=== PATIENT | male | born 1975 | race Hispanic/Latino ===

== ENCOUNTER 2024-08-22 12:46 | Emergency (ER) | payer OTHER ==
--- OUTSIDE RECORDS SUMMARY | 2024-08-22 12:49 | XMS REPORT | Continuity of Care Document ---
Author Name Unknown Address [address] [facility] [address]. [address] [id number] [facility] thconnect Address [address] [facility] 1 [address] [place] [address] Care Team Providers Care Entry Level Sales Associate Name Role Phone Zhang Attending Clinician Lois Huerta Attending Clinician Zhang Admitting Clinician Rahat zelaya Payers Payer Name Policy Type Policy Number Effective Date Expirati on Date Source RingTu [id number] 2018 00:00:00 COMMERCIAL NON-CONTRACT GENERIC [id number] 2018 00:00:00 Problems Condition Name Condition Details Condition Category Status Onset Date Resolution Date Last Treatment Date Treating Clinician Comments Source Primary gonarthros is, bilateral Primary Gonarthros is, Bilateral Problem Active 2022-07 00:00: 00 [facility] Pain of bilateral knee regions Pain of Bilateral Knee Regions Problem Active 2022-07 00:00: 00 [facility] Primary osteoarthr itis of right knee Primary osteoarthr itis of right knee Problem Active [facility] Primary osteoarthr itis of left knee Primary osteoarthr itis of left knee Diagnosis Active [facility] Tear of medial meniscus of left knee, current, unspecifie d tear type, initial encounter Tear of medial meniscus of left knee, current, unspecifie d tear type, initial encounter Diagnosis Active [facility] No known active problems No known active problems Disease [facility] Allergies, Adverse Reactions, Alerts Allergy Name Allergy Type Status Severity Reaction(s) Onset Date Inactive Date Treating Clinician Comments Source NO KNOWN ALLERGIE S Drug Class Active [facility] Social History Social Habit Start Date Stop Date Quantity Comments Source Sex Assigned At [facility] Exposure to SARS-CoV-2 (event) Not sure [facility] Smoking Status Start Date Stop Date Source Unknown if ever smoked [facility] Medications Ordered Medication Name Filled Medication Name Start Date Stop Date Current Medication? Ordering Clinician Indication Dosage Frequency Signature (SIG) Comments Components Source NaCl 0.9% (NS) bolus infusion 1,000 mL 08-10 16:45: 00 08-10 18:20 :00 No 1000mL at 999 mL/hr, 1,000 mL, IV Infusion, ONCE, 1 dose, Sat08/10/20 at 1045, EDWINA [facility] tylenol tylenol Yes Anant Navarro not defined [facility] Mobic 15 mg tablet Take 1 tablet every day by oral route with meals for 30 days. Mobic 15 mg tablet Take 1 tablet every day by oral route with meals for 30 days. No 1 Q1D Mobic 15 mg tablet Take 1 tablet every day by oral route with meals for 30 days. [facility] Mobic 15 mg tablet Take 1 tablet every day by oral route with meals for 42 days. Take 2 tab on first day, then 1 tab daily Mobic 15 mg tablet Take 1 tablet every day by oral route with meals for 42 days. Take 2 tab on first day, then 1 tab daily No 1 Q1D Mobic 15 mg tablet Take 1 tablet every day by oral route with meals for 42 days. Take 2 tab on first day, then 1 tab daily [facility] No known medications No [facility] Vital Signs Vital Name Observation Time Observation Value Comments S ource Height 2023-09-05 00:00:00 73 [in_i] [facility] Body Weight 2023-09-05 00:00:00 300 [lb_av] [facility] BMI (Body Mass Index) 2023-09-05 00:00:00 39.6 kg/m2 [facility] Height 2023-05-30 00:00:00 73 [in_i] [facility] Body Weight 2023-05-30 00:00:00 300 [lb_av] [facility] BMI (Body Mass Index) 2023-05-30 00:00:00 39.6 kg/m2 [facility] Systolic blood pressure 2020-08-10 18:17:00 142 mm[Hg] [facility] acute hospital Diastolic blood pressure 2020-08-10 18:17:00 102 mm[Hg] [facility] acute hospital Heart rate 2020-08-10 18:17:00 71 /min [facility] Respiratory rate 2020-08-10 18:17:00 18 /min [facility] Oxygen saturation in Arterial blood by Pulse oximetry 2020-08-10 18:17:00 97 /min [facility] acute hospital Body temperature 2020-08-10 15:42:00 36.44 Nancy [facility] Body weight 2020-08-10 15:42:00 158.759 kg [facility] Procedures Procedure Date / Time Performed Performing Clinicia n Source XR, knee, 1 or 2 view 2023-05-30 00:00:00 [facility] CREATINE KINASE 2020-08-10 16:48:00 Lois Holm [facility] MAGNESIUM 2020-08-10 16:48:00 [facility] COMP. METABOLIC PANEL ([id number]) 2020-08-10 16:48:00 Lois Holm [facility] CBC WITH DIFF 2020-08-10 16:48:00 Lois Holm [facility] NOTICE OF PRIVACY PRACTICES 2020-08-10 15:36:43 Doctor Unassigned, [place] [facility] CONSENT/REFUSAL FOR DIAGNOSIS AND TREATMENT 2020-08-10 15:36:20 Doctor Unassigned, [place] [facility] Other [facility] Encounters Start Date/Time End Date/Time Encounter Type Admission Type Attending Clinicians Care Facility Care Department Encounter ID Source 2021-07-26 11:32:06 Outpatient [facility] [id number] [facility] 2021-07-26 11:02:58 Outpatient [facility] [id number] [facility] 2021-07-26 10:58:39 Outpatient [facility] [id number] [facility] 2023-09-05 00:00:00 2023-09-05 00:00:00 Outpatient FOG_Armen Rasheed [facility] AO [id number] [facility] 2023-09-05 00:00:00 2023-09-05 00:00:00 Chaim Alaniz MD: [address] [place], [place] [id number] , Ph. [phone] [facility] [place] [facility] [place] [id number] [facility] 2023-07-14 00:00:00 2023-07-14 00:00:00 Outpatient FOG_Armen Rasheed AOSM AO [id number] [facility] 2023-05-30 00:00:00 2023-05-30 00:00:00 Outpatient FOG_Armen Rasheed AOSM AO [id number] [facility] 2023-05-30 00:00:00 2023-05-30 00:00:00 Chaim Alaniz MD: [address] [place] [id number] , Ph. [phone] [facility] [place] [facility] [place] [id number] [facility] 2023-05-29 00:00:00 2023-05-29 00:00:00 Outpatient FOG_Armen Rasheed AOSM AOSM [id number] [facility] 2023-05-15 00:00:00 2023-05-15 00:00:00 Outpatient FOG_Armen Rasheed AOSM AOSM [id number] [facility] 2023-05-15 00:00:00 2023-05-15 00:00:00 Outpatient FRANCESCO_Corbin[facility]Nya amos[facility] [id number] [facility] 2020-08-10 09:52:00 2020-08-10 12:23:00 Emergency Lois Holm [facility] [id number] [facility] 2020-08-10 09:52:00 2020-08-10 09:52:[address] [facility] ERT [id number] [facility] 2019-02-13 07:55:00 2019-02-13 07:55:00 Outpatient [facility] [id number] [facility] 2019-01-27 08:30:00 2019-01-27 08:30:00 [facility] [id number] [facility] 2019-01-19 14:30:00 2019-01-19 14:30:00 [facility]patient [facility] [id number] [facility] 2019-01-07 13:41:00 2019-01-07 13:41:00 Outpatient [facility] [id number] [facility] 2018-12-24 17:12:00 2018-12-24 17:12:00 Outpatient [facility] [id number] [facility] 2018-09-30 12:47:00 2018-09-30 12:47:00 Outpatient [facility] [id number] [facility] 2018-09-23 10:00:00 2018-09-23 10:00:00 Outpatient [facility] [id number] [facility] Results Test Description Test Time Test Comments Results Result Co mments Source [facility] 17:19:00* Test Item Value Reference Range Interpretation Comme nts MAGNESIUM (test code = 2625932365) 2.1 mg/dL 1.7-2.4 Lab Interpretation (test cod e = 68566-0) Normal [facility] [id number] 17:18:00* Test Item Value Reference Range Interpretation Comme nts CK (test code = 7877227167) 804 U/L 33-194 H Lab Interpretation (test cod e = 69885-2) Abnormal [facility] WITH [id number] 17:06:00* Test Item Value Reference Range Interpretation Comme nts WBC (test code = 6690-2) See_Comment [Automated Kadenzea ge] The system which generated this result transmitted reference range: 4.20 - 10.70 10*3/?L. The reference range was not used to interpret this result as normal/abnormal. RBC (test code = 789-8) See_Comment [Automated Kadenzea ge] The system which generated this result transmitted reference range: 4.26 - 5.52 10*6/?L. The reference range was not used to interpret this result as normal/abnormal. HGB (test code = 718-7) 15.4 g/dL 12.2-16.4 HCT (test code = 4544-3) 44.8 % 38.4-49.3 MCV (test code = 787-2) 87.2 fL 81.7-95.6 MCH (test code = 785-6) 30.0 pg 26.1-32.7 MCHC (test code = 786-4) 34.4 g/dL 31.2-35 RDW-SD (test code = 79639-7) 38.9 fL 38.5-51.6 RDW-CV (test code = 788-0) 12.1 % 12.1-15.4 PLT (test code = 777-3) See_Comment H [Automated messa ge] The system which generated this result transmitted reference range: 150 - 328 10*3/?L. The reference range was not used to interpret this result as normal/abnormal. MPV (test code = 97589-9) 9.8 fL 9.8-13 NRBC/100 WBC (test code = 7602851743) See_Comment [Automated Astaro ssage] The system which generated this result transmitted reference range: 0.0 - 10.0 /100 WBCs. The reference range was not used to interpret this result as normal/abnormal. NRBC x10^3 (test code = 5772973650) <0.01 See_Comment [Automated messa ge] The system which generated this result transmitted reference range: 10*3/?L. The reference range was not used to interpret this result as normal/abnormal. GRAN MAT (NEUT) % (test code = 770-8) 65.3 % IMM GRAN % (test code = 5624191382) 0.70 % LYMPH % (test code = 736-9) 24.8 % MONO % (test code = 5905-5) 7.7 % EOS % (test code = 713-8) 1.1 % BASO % (test code = 706-2) 0.4 % GRAN MAT x10^3(ANC) (test code = 5100596799) 6.43 10*3/uL 1.99-6.95 IMM GRAN x10^3 (test code = 1036696380) 0.07 10*3/uL 0-0.06 H LYMPH x10^3 (test code = 731-0) 2.44 10*3/uL 1.09-3.23 MONO x10^3 (test code = 742-7) 0.76 10*3/uL 0.36-1.02 EOS x10^3 (test code = 711-2) 0.11 10*3/uL 0.06-0.53 BASO x10^3 (test code = 704-7) 0.04 10*3/uL 0.01-0.09 Lab Interpretation (test code = 88454-9) Abnormal [facility]
[2024-08-22] MEDS ORDERED: FAMOTIDINE 20 MG/2 ML VIAL IV ONE (13:30)
[2024-08-22] MEDS ORDERED: KETOROLAC 30 MG/ML INJ ONE (13:30)
[2024-08-22] MEDS ORDERED: ONDANSETRON 4 MG/2 ML VIAL ONE (13:30)
[2024-08-22] MEDS ORDERED: NA CHLORIDE 0.9% 1,000 ML ONE ×2 (13:31→15:40)
[2024-08-22 13:34] LABS: Absolute Basophils 0.1 K/uL (0-0.5); Absolute Eosinophils 0.3 K/uL (0-0.5); Absolute Lymphocytes (CBC) 2.9 K/uL (0.7-4.9); Absolute Monocytes 0.8 K/uL (0.1-1.3); Absolute Neutrophil 6.2 K/uL (1.8-8.0); Basophils % 0.6 % (0-1.3); Eosinophils % 2.5 % (0-4.4); Hematocrit 43.7 % (39.6-49.0); Hemoglobin 14.7 g/dL (13.6-17.9); Lymphocytes % 28.6 % (15.3-44.8); MCHC 33.6 g/dL (32.0-36.0); MCV 89.1 fL (80-100); MPV 7.9 fL (7.6-11.3); Monocytes % 7.6 % (3.3-12.3); Neutrophils % 60.7 % (41.7-73.7); Platelets 353 thou/uL (152-406); RBC Red Blood Cell Count 4.91 M/uL (4.33-5.43); Red Cell Distribution Width 13.8 % (12.1-15.2)
[2024-08-22 13:57] LABS: Albumin 3.6 g/dL (3.4-5.0); Albumin/Globulin Ratio 0.8 (1.1-1.8); Anion Gap 10.9 mEq/L (5.0-15.0); Bilirubin Total 0.5 mg/dL (0.2-1.0); Globulin 4.4 g/dL (2.3-3.5); Potassium 3.9 mEq/L (3.5-5.1)
--- NOTE | 2024-08-22 14:22 | RAD REPORT ---
EXAMINATION: US Abdomen Exam Limited CLINICAL HISTORY: [facility] MAIN Y ABD PAIN Bed: COMPARISON: None. TECHNIQUE: Limited upper abdominal grayscale and color flow sonographic images. FINDINGS: Gallbladder: Normal. Reportedly negative sonographic Hsieh sign Bile ducts: No intrahepatic or extrahepatic biliary dilatation. Common bile duct measures 2 mm. Liver: Visualized portions of the liver demonstrate diffuse parenchymal echogenicity suggesting steat osis. Small regions of sparing adjacent to the gallbladder bed. Fluid: No ascites. IMPRESSION: No suspicious sonographic abnormalities of the gallbladder. Diffuse hepatic steatosis.
[2024-08-22] MEDS ORDERED: MORPHINE 4 MG/ML SYR ONE (14:28)
--- NOTE | 2024-08-22 15:18 | RAD REPORT ---
EXAMINATION: CT Abdomen Pelvis W Contrast CLINICAL INDICATION: Male, 48 years old. ABD PAIN TECHNIQUE: CT abdomen and pelvis was performed, after the administration of IV contrast, as per [facility]. Axial, sagittal and coronal reconstructions were obtained. One or more of the following dose reduction techniques were used: Automated exposure control, adjustment of the mA and k V according to patient size, and iterative reconstruction. Unless otherwise specified, incidental findings do not require dedicated imaging follow-up. COMPARISON: No prior exam. FINDINGS: LOWER CHEST: The visualized lung bases are clear. LIVER: Mild fatty liver is present. No focal lesion or biliary dilataion is seen. BILIARY SYSTEM: No suspicious abnormalities. SPLEEN: Normal size. No focal lesion. PANCREAS: No mass, ductal dilation, or ekta-pancreatic fluid. ADRENALS: Normal; no mass. KIDNEYS: Normal size and contour. No hydronephrosis. URINARY BLADDER: Compressed limiting evaluation. GASTROINTESTINAL TRACT: Focus of mucosal irregularity with tiny locules of gas probably along the pos terior wall of the duodenal bulb, with adjacent retroperitoneal fat stranding. No appreciable fluid collections. No evidence of free air, significant intra-abdominal free fluid, bowel obstruction or ab scess. APPENDIX: Normal appendix. LYMPH NODES: No lymphadenopathy. MUSCULOSKELETAL: No acute or suspicious osseous abnormality. ADDITIONAL FINDINGS: Diastasis recti. Umbilical and supraumbilical small hernias containing fat. IMPRESSION: Retroperitoneal fat stranding with adjacent mucosal irregularity probably along the posterior wall of the duodenal bulb. Findings may relate to an ulcer with early perforation versus nonspecific duodenitis. Umbilical and supraumbilical small hernias containing fat. Other incidental findings as above.
--- NOTE | 2024-08-22 15:28 | ER ---
Nurse's Notes [facility] Name: Vinicius Walton Age: 48 yrs Sex: Male : 1975 Arrival Date: 08/22/2024 Time: 12:46 Bed 20 Private MD: Diagnosis: Duodenitis;Upper abdominal pain, unspecified;Duodenal ulcer Presentation: 08/22 12:57 Chief complaint: Patient states: he had to lift a heavy pipe a couple of days ago at ap3 work, and had a pain in his abdomen. patient states he has been taking tums to see if it would make it feel better but the pain has not gotten better. Patient reports he has a "ball" above his belly button that he can feel. Coronavirus screen: At this time, the client does not indicate any symptoms associated with coronavirus-19. Ebola Screen: No symptoms or risks identified at this time. 12:57 Method Of Arrival: Ambulatory ap3 13:03 Initial Sepsis Screen: Does the patient meet any 2 criteria? No. Patient's initial ap3 sepsis screen is negative. Does the patient have a suspected source of infection? No. Patient's initial sepsis screen is negative. Risk Assessment: Do you want to hurt yourself or someone else? Patient reports no desire to harm self or others. Onset of symptoms is unknown. 13:03 Acuity: CAM 3 ap3 Triage Assessment: 13:02 General: Appears in no apparent distress. Behavior is calm, cooperative, appropriate ap3 for age. Pain: Complains of pain in umbilical area. Neuro: Level of Consciousness is awake, alert, obeys commands, Oriented to person, place, time, situation, Appropriate for age Speech is normal. Cardiovascular: Patient's skin is warm and dry. Respiratory: Airway is patent Respiratory effort is even, unlabored, Respiratory pattern is regular, symmetrical. GI: Reports indigestion. Historical: - Allergies: 13:02 No Known Allergies; ap3 - PMHx: 13:02 Diabetes mellitus; Hypertensive disorder; ap3 - Immunization history:: Client reports having NOT received the Covid vaccine. Flu vaccine is up to date. - Infectious Disease History:: Denies. - Social history:: Smoking status: Reported history of juuling and/or vaping. Patient uses alcohol, occasionally. Screenin:04 [facility] ED Fall Risk Assessment (Adult) History of falling in the last 3 months, ap3 including since admission No falls in past 3 months (0 pts) Confusion or Disorientation No (0 pts) Intoxicated or Sedated No (0 pts) Impaired Gait No (0 pts) Mobility Assist Device Used No (0 pt) Altered Elimination No (0 pt) Score/Fall Risk Level 0 - 2 = Low Risk Oriented to surroundings, Maintained a safe environment, Educated pt \\T\\ family on fall prevention, incl call for assistance when getting out of bed, Assessed \\T\\ reinforced patient's understanding of fall precautions, Hourly rounding (assess needs \\T\\ fall precautionary measures) done, Used ambulatory aids as needed (educated on \\T\\ assisted with). Abuse screen: Denies threats or abuse. Nutritional screening: No deficits noted. Tuberculosis screening: No symptoms or risk factors identified. Assessment: 13:20 General: Appears in no apparent distress. kj2 14:20 Reassessment: Patient appears in no apparent distress at this time. Patient and/or kj2 family updated on plan of care and expected duration. Pain level reassessed. Patient is alert, oriented x 3, equal unlabored respirations, skin warm/dry/pink. 15:15 Reassessment: Patient appears in no apparent distress at this time. Patient and/or kj2 family updated on plan of care and expected duration. Pain level reassessed. Patient is alert, oriented x 3, equal unlabored respirations, skin warm/dry/pink. 16:15 Reassessment: Patient appears in no apparent distress at this time. Patient and/or kj2 family updated on plan of care and expected duration. Pain level reassessed. Patient is alert, oriented x 3, equal unlabored respirations, skin warm/dry/pink. 17:30 Reassessment: Patient appears in no apparent distress at this time. Patient and/or kj2 family updated on plan of care and expected duration. Pain level reassessed. Patient is alert, oriented x 3, equal unlabored respirations, skin warm/dry/pink. 18:30 Reassessment: Patient appears in no apparent distress at this time. Patient and/or kj2 family updated on plan of care and expected duration. Pain level reassessed. Patient is alert, oriented x 3, equal unlabored respirations, skin warm/dry/pink. 19:27 Reassessment: Patient appears in no apparent distress at this time. Patient and/or kj2 family updated on plan of care and expected duration. Pain level reassessed. Patient is alert, oriented x 3, equal unlabored respirations, skin warm/dry/pink. Vital Signs: 12:57 Pulse 84; Temp 98.4(O); Pulse Ox 98% on R/A; ap3 13:03 Weight 157.4 kg; Height 5 ft. 11 in. ; Pain 9/10; ap3 13:04 BP 133 / 91; ap3 15:16 BP 121 / 69; Pulse 65; Resp 20; Pulse Ox 100% on R/A; kj2 17:30 BP 135 / 75; Pulse 65; Resp 18; Pulse Ox 100% ; kj2 18:30 BP 124 / 69; Pulse 66; Resp 18; Pulse Ox 100% ; kj2 19:27 BP 133 / 85; Pulse 64; Resp 18; Temp 98.2; Pulse Ox 100% on R/A; kj2 13:03 Body Mass Index 48.40 (157.40 kg, 180.34 cm) ap3 13:03 Pain Scale: Adult ap3 ED Course: 12:47 Patient arrived in ED. mr 12:52 Benigno Garciaistin, CAITLYN [facility] kb 12:52 Ej Card MD is Attending Physician. kb 13:03 Triage completed. ap3 13:04 Arm band placed on right wrist. ap3 13:15 Marta Reveles, RN is Primary Nurse. kj2 13:20 Patient has correct armband on for positive identification. Bed in low position. Call kj2 light in reach. Side rails up X 1. Provided Education on: call light. 13:25 Inserted saline lock: 20 gauge in left antecubital area, using aseptic technique. Blood kj2 collected. Flushed with 10 mL NS. 13:46 US Abdomen Limited In Process Unspecified. EDMS 14:32 No provider procedures requiring assistance completed. kj2 14:42 CT Abd/Pelvis - IV Contrast Only In Process Unspecified. EDMS 15:44 1544 called [facility]-- no answer. sp 15:48 1548 called [facility] no anwer. sp 15:53 1553- started calling [facility] talked to Tanesha \\T\\1557. sp 16:[address] Agustín Villalta accepted pt 1645 Admin approval by Shaunna Valero to [facility] sp room 1547 report number [phone] fax [phone]. Called [facility] for transfer talked to Raghav. 19:28 Patient transferred, IV remains in place. kj2 Administered Medications: 13:49 Drug: Famotidine IVP 20 mg IVP once; dilute with 10 mL 0.9% NaCl; give over 2 minutes kj2 Route: IVP; Site: left antecubital; 14:31 Follow up: Response: No adverse reaction kj2 13:49 Drug: TORadol - Ketorolac IVP 15 mg IVP once Route: IVP; Site: left antecubital; kj2 14:32 Follow up: Response: No adverse reaction kj2 13:49 Drug: Ondansetron IVP 4 mg IVP once; over 2 minutes Route: IVP; Site: left antecubital; kj2 14:31 Follow up: Response: No adverse reaction kj2 14:32 Follow up: Response: No adverse reaction kj2 13:49 Drug: NS 0.9% IV 1000 ml IV at 1 bolus Per protocol; to be given as a bolus over 60 kj2 minutes Route: IV; Rate: 1 bolus; Site: left antecubital; 14:31 Drug: morphine IVP or IV 4 mg IVP once over 4 mins Route: IVP; Infused Over: 4 mins; kj2 Site: left antecubital; 15:32 Follow up: Response: No adverse reaction kj2 15:50 Drug: Pantoprazole IVP 80 mg IVP once Route: IVP; Site: left antecubital; kj2 17:54 Follow up: Response: No adverse reaction kj2 15:50 Drug: NS 0.9% IV 1000 ml IV at 125 ml/hr Per protocol Route: IV; Rate: 125 ml/hr; Site: kj2 left antecubital; 19:27 Follow up: IV Status: Infusion continued upon transfer kj2 16:45 Drug: Piperacillin-Tazobactam IVPB 3.375 grams IVPB once over 60 mins; (mix in NS 100 kj2 mL) Route: IVPB; Infused Over: 60 mins; Site: left antecubital; 17:54 Follow up: Response: No adverse reaction; IV Status: Completed infusion; IV Intake: kj2 100ml 17:53 Drug: Pantoprazole IV 8 mg/hr IV at 25 ml/hr continuous; (Standard dilution is 80 mg in kj2 250 mL NS) Route: IV; Rate: 25 ml/hr; Site: left antecubital; 19:27 Follow up: IV Status: Infusion continued upon transfer kj2 Medication: 14:32 VIS not applicable for this client. kj2 Intake: 17:54 IV: 100ml; Total: 100ml. kj2 Outcome: 15:27 ER care complete, transfer ordered by MD. guidry 19:28 Transferred by ground EMS to [facility], kj2 19:28 Condition: stable 19:28 Instructed on the need for transfer, 19:31 Patient left the ED. kj2 Signatures: Dispatcher [employer] EDMS Deanne Garcia, RADAMES-C ASSISTANT MANAGER OF OPERATIONS-CkLeydi Molina Amanda, [facility] Reg mr Eulalia Smith, RN RN ap3 Marta Reveles, RN RN kj2 Corrections: (The following items were deleted from the chart) 17:14 17:13 Piperacillin-Tazobactam IVPB 3.375 grams IVPB in left antecubital over 60 mins kj2kj2
--- NOTE | 2024-08-22 15:28 | EDPHYS ---
Physician Documentation [facility] Name: Vinicius Walton Age: 48 yrs Sex: Male : 1975 Arrival Date: 08/22/2024 Time: 12:46 Bed 20 Private MD: ED Physician Ej Card HPI: 08/22 15:19 This 48 yrs old Male presents to ER via Ambulatory with complaints of Hernia. kb 15:19 Pt is a 48 year old male who presents for upper abdominal pain that has been kb intermittent for a while. States it comes on after eating, especially eating spicy foods/drinks. Also reports he was lifting a heavy pipe at work yesterday and felt a pop in his abd, now feels a bulge in belly button. . Historical: - Allergies: 13:02 No Known Allergies; ap3 - PMHx: 13:02 Diabetes mellitus; Hypertensive disorder; ap3 - Immunization history:: Client reports having NOT received the Covid vaccine. Flu vaccine is up to date. - Infectious Disease History:: Denies. - Social history:: Smoking status: Reported history of juuling and/or vaping. Patient uses alcohol, occasionally. ROS: 15:18 Constitutional: As per HPI kb Exam: 15:18 Constitutional: This is a well developed, well nourished patient who is awake, alert, kb and in no acute distress. Head/Face: Normocephalic, atraumatic. ENT: Moist Mucous membranes Cardiovascular: Regular rate Respiratory: Respirations even and unlabored. No increased work of breathing. Talking in full sentences Skin: Warm, dry with normal turgor. Normal color. MS/ Extremity: Pulses equal, no cyanosis. Neurovascular intact. Full, normal range of motion. Neuro: Awake and alert, GCS 15, oriented to person, place, time, and situation. 15:18 Abdomen/GI: Inspection: abdomen appears normal, Bowel sounds: normal, Palpation: soft, in all quadrants, mild abdominal tenderness, in the epigastric area, Hernia: noted in the umbilical area, easily reduced, Vital Signs: 12:57 Pulse 84; Temp 98.4(O); Pulse Ox 98% on R/A; ap3 13:03 Weight 157.4 kg; Height 5 ft. 11 in. ; Pain 9/10; ap3 13:04 BP 133 / 91; ap3 15:16 BP 121 / 69; Pulse 65; Resp 20; Pulse Ox 100% on R/A; kj2 17:30 BP 135 / 75; Pulse 65; Resp 18; Pulse Ox 100% ; kj2 18:30 BP 124 / 69; Pulse 66; Resp 18; Pulse Ox 100% ; kj2 19:27 BP 133 / 85; Pulse 64; Resp 18; Temp 98.2; Pulse Ox 100% on R/A; kj2 13:03 Body Mass Index 48.40 (157.40 kg, 180.34 cm) ap3 13:03 Pain Scale: Adult ap3 MDM: 12:52 Medical Screening Exam initiated kb 15:19 Differential diagnosis: esophagitis, GERD, cholelithiasis, pancreatitis, hernia. Data kb reviewed: vital signs, nurses notes. 16:41 Consideration of Admission/Observation Escalation of care including kb admission/observation considered. pt will be transferred for GI consultation. Management of patient was discussed with the following: Dr Villalta, hospitalist at [facility], accepts pt for transfer. Dr Coe, GI, accepts pt for consult. Historians other than the Patient: Spouse/Significant Other: . Counseling: I had a detailed discussion with the patient and/or guardian regarding the historical points, exam findings, and any diagnostic results supporting the discharge/admit diagnosis, lab results, radiology results, the need to transfer to another facility, [facility] does not immediately have the required specialist. 08/22 13:04 Order name: CBC with Diff; Complete Time: 13:43 kb 08/22 13:04 Order name: CMP; Complete Time: 14:06 kb 08/22 13:04 Order name: Lipase; Complete Time: 14:06 kb 08/22 13:04 Order name: CT Abd/Pelvis - IV Contrast Only; Complete Time: 15:21 kb 08/22 13:04 Order name: US Abdomen Limited; Complete Time: 14:27 kb 08/22 13:04 Order name: IV Saline Lock; Complete Time: 13:37 kb 08/22 13:04 Order name: Labs collected and sent; Complete Time: 13:37 kb 08/22 15:26 Order name: NPO; Complete Time: 15:50 kb Administered Medications: 13:49 Drug: Famotidine IVP 20 mg IVP once; dilute with 10 mL 0.9% NaCl; give over 2 minutes kj2 Route: IVP; Site: left antecubital; 14:31 Follow up: Response: No adverse reaction kj2 13:49 Drug: TORadol - Ketorolac IVP 15 mg IVP once Route: IVP; Site: left antecubital; kj2 14:32 Follow up: Response: No adverse reaction kj2 13:49 Drug: Ondansetron IVP 4 mg IVP once; over 2 minutes Route: IVP; Site: left antecubital; kj2 14:31 Follow up: Response: No adverse reaction kj2 14:32 Follow up: Response: No adverse reaction kj2 13:49 Drug: NS 0.9% IV 1000 ml IV at 1 bolus Per protocol; to be given as a bolus over 60 kj2 minutes Route: IV; Rate: 1 bolus; Site: left antecubital; 14:31 Drug: morphine IVP or IV 4 mg IVP once over 4 mins Route: IVP; Infused Over: 4 mins; kj2 Site: left antecubital; 15:32 Follow up: Response: No adverse reaction kj2 15:50 Drug: Pantoprazole IVP 80 mg IVP once Route: IVP; Site: left antecubital; kj2 17:54 Follow up: Response: No adverse reaction kj2 15:50 Drug: NS 0.9% IV 1000 ml IV at 125 ml/hr Per protocol Route: IV; Rate: 125 ml/hr; Site: kj2 left antecubital; 19:27 Follow up: IV Status: Infusion continued upon transfer kj2 16:45 Drug: Piperacillin-Tazobactam IVPB 3.375 grams IVPB once over 60 mins; (mix in NS 100 kj2 mL) Route: IVPB; Infused Over: 60 mins; Site: left antecubital; 17:54 Follow up: Response: No adverse reaction; IV Status: Completed infusion; IV Intake: kj2 100ml 17:53 Drug: Pantoprazole IV 8 mg/hr IV at 25 ml/hr continuous; (Standard dilution is 80 mg in kj2 250 mL NS) Route: IV; Rate: 25 ml/hr; Site: left antecubital; 19:27 Follow up: IV Status: Infusion continued upon transfer kj2 Disposition Summary: 08/22/24 15:27 Transfer Ordered Notes: Transfer Location: [facility] kb Reason: Higher level of care kb Condition: Stable kb Problem: new kb Symptoms: are unchanged kb Accepting Physician: Dr Villalta(08/22/24 19:31) kj2 Diagnosis - Duodenitis kb - Upper abdominal pain, unspecified kb - Duodenal ulcer kb Forms: - Medication Reconciliation Form kb - SBAR form kb Addendum: 08/24/2024 12:34 Co-signature as Attending Physician, Ej Card MD I agree with the assessment and c carrillo plan of care. Signatures: Dispatcher [employer] EDMS Deanne Garcia, COMPUTER CONSULTANT-C COMPUTER CONSULTANT-Ckb Ej Card MD MD cha Prokisch, Amanda RN RN ap3 Marta Reveles, RN RN kj2 Corrections: (The following items were deleted from the chart) 08/22 13:05 13:05 Abdomen Pelvis W Con+CT.RAD.BRZ ordered. EDMS EDMS 13:05 13:05 Abdomen Limited+US.RAD.BRZ ordered. EDMS EDMS 16:42 15:27 Dr guidry kb 19:31 16:42 Dr Villalta kb kj2
[2024-08-22] MEDS ORDERED: PANTOPRAZOLE 40 MG INJ ONE ×2 (15:40→17:02)
[2024-08-22] MEDS ORDERED: NA CHLORIDE 0.9% 100 ML ONE (17:02)
[2024-08-22] MEDS ORDERED: NA CHLORIDE 0.9% 250 ML ONE (17:02)
[2024-08-22] MEDS ORDERED: PIPERACIL/TAZO 3.375 GM VIAL IV ONE (17:03)
[2024-08-22 19:50] VITALS: O2SAT 100
[2024-08-22 19:54] VITALS: BP 133/85; TEMP 98.2
== END 2024-08-22 19:31 | disposition short-term general hospital (02) ==
LOC: ER 12:46
DX: K29.80 Duodenitis without bleeding (principal); K26.9 Duodenal ulcer, unspecified as acute or chronic, without hemorrhage or perforation
CPT/HCPCS: 96365; 96361; 96368; 85025; 36415; 83690; 80053; 74177; 76705; 96375; 99285; 96366; Q9967; J2543; J2470 ×2; J2405; J7050; J7030 ×2